=== PATIENT | female | born 1995 | race Caucasian/White ===

== ENCOUNTER 2022-01-27 11:24 | Inpatient (IN) | payer MEDICAID, SELFPAY ==
[2022-01-27 11:27] VITALS: BP 155/107; PULSE 100; RESP 20; TEMP 37.1; O2SAT 98; BMI 32.9
[2022-01-27 11:52] VITALS: BP 152/106; PULSE 83; RESP 16; TEMP 36.5; O2SAT 98
--- NOTE | 2022-01-27 11:52 | ED_ITS ---
HPI - General Adult General: Chief complaint: Psychiatric Symptoms Stated complaint: SI Time Seen by Provider: 01/27/22 11:30 History of Present Illness: HPI: 26yo patient w/ hx of depression, Steele syndrome, autistic spectrum disorder BIBA for statements of suicidal ideation. for On arrival, the patient is AAOx3 and cooperative with my evaluation. No focal complaints of chest pain, shortness of breath, palpitations, N/V, focal GI/ complaints. Currently denies YARY. No complaints of hallucinations. Onset: acute Duration: ongoing Location: home Severity: severe Associated symptoms: Deny chest pain, dyspnea, nausea, rash, palpitations or vo miting Review of Systems Const: Denies: fever(s) or chills Eyes: Denies: change in vision ENMT: Denies: mouth pain Card: Denies: chest pain or palpitations Resp: Denies: dyspnea or non-productive cough GI: Denies: abdominal pain, nausea, vomiting or diarrhea : Denies: dysuria Musc: Denies: extremity pain Skin/Breast: Denies: rash or new lesions Neuro: Denies: weakness in extremities Psych: Reports: suicidal ideation and other (Normal mood) Martin/Lymph: Denies: easy bruising PFSH ED PFSH: Medical History (Updated 01/27/22 @ 12:21 by Julianne Cade MD) Autistic spectrum disorder Depression Steele syndrome Social History (Updated 01/27/22 @ 11:54 by Julianne Cade MD) Smoking and tobacco status: never smoked Alcohol intake: never Physical Exam Const: COMMON NORMALS: alert HENMT: COMMON NORMALS: atraumatic HEAD & SCALP: atraumatic MOUTH: moist mucous membranes not abnormal Eye: COMMON NORMALS: EOMs intact bilaterally and conjunctivae normal CONJUNCTIVA: Yes conjunctivae normal Neck/C-Spine: COMMON NORMALS: full ROM and supple Resp: COMMON NORMALS: normal respiratory effort and clear to auscultation bilaterally AUSCULTATION: clear to auscultation bilaterally Cardio: COMMON NORMALS: regular rate RATE: regular rate GI: COMMON NORMALS: Soft to palpation and non-tender PALPATION: Yes Soft to palpation Extremity: COMMON NORMALS: full ROM Neuro: SENSORIUM/ORIENTATION: Yes alert MOTOR EXAM: No Abnormal motor strength present and Other motor observations present (no focal motor deficits) Psych: COMMON NORMALS: speech normal SPEECH: Yes normal speech MOOD & AFFECT: Yes euthymic mood Course Vital Signs: Vital signs: Vital Signs Temperature 99.2 F 01/27/22 14:00 Pulse Rate 84 01/27/22 14:00 Respiratory Rate 17 01/27/22 14:00 Blood Pressure 156/91 01/27/22 14:00 Pulse Oximetry 100 01/27/22 14:00 MDM - General Adult Medical Decision Making [26]yo patient w/ hx of depression, steele syndrome, autism spectrum disorder presenting for SI and depression. HDS, exam within normal limit Thoughts are linear and organized, and the patient has no AH/VH, or HI. Clinically the patient displays no overt toxidrome; they are well appearing, with low suspicion for toxic ingestion given history and exam. Symptoms unlikely 2/2 anemia, hypothyroidism, infection, or ICH. Workup: CBC, CMP, Lipase, salicylate/tylenol, UDS Lab findings: wnl, +benzos in the urine [1:15pm] On reassessment, labs and workup wnl. Patient is hemodynamically stable with no acute medical complaints. Case discussed with psychiatric provider Dr. Garsia at [facility] psych inpatient with recommendation for admission Disposition: Psych Lab Data : 01/27/22 11:45 01/27/22 11:45 Laboratory Results WBC 12.2 10^3/uL (4.0-10.0) H 01/27/22 11:45 RBC 4.58 10^6/uL (4.1-5.3) 01/27/22 11:45 Hgb 14.6 g/dL (11.5-15.3) 01/27/22 11:45 Hct 43.1 % (37.0-47.0) 01/27/22 11:45 MCV 94.1 fl (81-99) 01/27/22 11:45 MCH 31.9 pg (28.0-34.0) 01/27/22 11:45 MCHC 33.9 g/dL (30.0-36.0) 01/27/22 11:45 RDW 11.8 % (12.1-15.1) L 01/27/22 11:45 Plt Count 361 10^3/cmm (130-400) 01/27/22 11:45 MPV 10.5 fL (7.4-10.4) H 01/27/22 11:45 Neut % (Auto) 68.5 % 01/27/22 11:45 Lymph % (Auto) 24.9 % 01/27/22 11:45 [place] % (Auto) 5.4 % 01/27/22 11:45 Eos % (Auto) 0.3 % 01/27/22 11:45 Baso % (Auto) 0.2 % 01/27/22 11:45 Neut # (Auto) 8.33 10^3/uL (1.8-7.7) H 01/27/22 11:45 Lymph # (Auto) 3.0 10^3/uL (0.8-4.8) 01/27/22 11:45 [place] # (Auto) 0.7 10^3/uL (0.2-0.9) 01/27/22 11:45 Eos # (Auto) 0.0 10^3/uL (0.0-0.8) 01/27/22 11:45 Baso # (Auto) 0.0 10^3/uL (0.0-0.1) 01/27/22 11:45 Nucleated RBC % (auto) 0 % 01/27/22 11:45 Nucleated RBCs # 0.0 /100WBC 01/27/22 11:45 Sodium 137 mmol/L (136-145) 01/27/22 11:45 Potassium 4.0 mmol/L (3.5-5.1) 01/27/22 11:45 Chloride 99 mmol/L (98-107) 01/27/22 11:45 Carbon Dioxide 24 mmol/L (22-29) 01/27/22 11:45 Anion Gap 18.0 (5-19) 01/27/22 11:45 BUN 13 mg/dL (6-20) 01/27/22 11:45 Creatinine 0.8 mg/dL (0.5-0.9) 01/27/22 11:45 GFR Calculation 85.4 mL/min (90-130) L 01/27/22 11:45 Glucose 165 mg/dL (65-115) H 01/27/22 11:45 Calculated Osmolality 288 mOsm/kg (285-295) 01/27/22 11:45 Calcium 9.8 mg/dL (8.5-10.5) 01/27/22 11:45 Total Bilirubin 0.5 mg/dL (0.15-1.2) 01/27/22 11:45 AST 26 U/L (0-32) 01/27/22 11:45 ALT 27 U/L (0-33) 01/27/22 11:45 Alkaline Phosphatase 55 IU/L (35-105) 01/27/22 11:45 Total Protein 8.1 g/dL (6.6-8.7) 01/27/22 11:45 Albumin 4.9 g/dL (3.5-5.2) 01/27/22 11:45 Globulin 3.2 g/dL (1.3-4.6) 01/27/22 11:45 Lipase 26 U/L (13-60) 01/27/22 11:45 Salicylates < 0.3 mg/dL (3-10) L 01/27/22 11:45 Urine Opiates Screen Negative ng/mL (Negative) 01/27/22 11:56 Acetaminophen < 5.0 ug/mL (10-30) L 01/27/22 11:45 Ur Barbiturates Screen Negative ng/mL (Negative) 01/27/22 11:56 Ur Phencyclidine Scrn Negative ng/mL (Negative) 01/27/22 11:56 Ur Amphetamines Screen Negative ng/mL (Negative) 01/27/22 11:56 U Benzodiazepines Scrn Positive ng/mL (Negative) H 01/27/22 11:56 Urine Cocaine Screen Negative ng/mL (Negative) 01/27/22 11:56 U Marijuana (THC) Screen Negative ng/mL (Negative) 01/27/22 11:56 Discharge Plan Discharge Patient Disposition: Admitted As Inpatient Admit Provider: Jorden Garsia Clinical Impression: Depression, Depression with suicidal ideation Condition: Stable Coding Level of Care Code ED Director Of Sales Marketing for [employer] Fwd Exam Comprehensive
[2022-01-27 11:55] LABS: Basophils % 0.2 %; Eosinophils % 0.3 %; Hematocrit 43.1 % (37.0-47.0); Hemoglobin 14.6 g/dL (11.5-15.3); Lymphocytes % 24.9 %; Mean Corpuscular HGB Conc 33.9 g/dL (30.0-36.0); Mean Corpuscular Hemoglobin 31.9 pg (28.0-34.0); Mean Corpuscular Volume 94.1 fl (81-99); Mean Platelet Volume 10.5 fL (7.4-10.4); Monocytes # 0.7 10^3/uL (0.2-0.9); Monocytes % 5.4 %; Neutrophils # 8.33 10^3/uL (1.8-7.7); Neutrophils % 68.5 %; Nucleated Red Blood Cells % 0 %; Platelet Count 361 10^3/cmm (130-400); Red Blood Count 4.58 10^6/uL (4.1-5.3); Red Cell Distribution Width 11.8 % (12.1-15.1); White Blood Count 12.2 10^3/uL (4.0-10.0)
[2022-01-27 12:19] LABS: Amphetamines Screen Urine Negative (Negative); Barbiturates Screen Urine Negative (Negative); Benzodiazepines Screen Urine Positive (Negative); Cocaine Screen Urine Negative (Negative); Opiate Screen Urine Negative (Negative); PCP Screen Urine Negative (Negative); THC Screen Urine Negative (Negative)
[2022-01-27 12:22] LABS: Alanine Aminotransferase 27 U/L (0-33); Albumin Level 4.9 g/dL (3.5-5.2); Alkaline Phosphatase 55 IU/L (35-105); Aspartate Amino Transferase 26 U/L (0-32); Blood Urea Nitrogen 13 mg/dL (6-20); Calcium 9.8 mg/dL (8.5-10.5); Carbon Dioxide 24 mmol/L (22-29); Chloride 99 mmol/L (98-107); Globulin 3.2 g/dL (1.3-4.6); Glomerular Filtration Rate 85.4 mL/min (90-130); Glucose 165 mg/dL (65-115); Lipase 26 U/L (13-60); Osmolality Calculated 288 mOsm/kg (285-295); Sodium 137 mmol/L (136-145); Total Bilirubin 0.5 mg/dL (0.15-1.2); Total Protein 8.1 g/dL (6.6-8.7)
[2022-01-27 12:27] LABS: Acetaminophen < 5.0 ug/mL (10-30); Salicylate < 0.3 mg/dL (3-10)
[2022-01-27 12:34] VITALS: BP 189/81; PULSE 81; O2SAT 96
--- NOTE | 2022-01-27 13:01 | PC.NURSE ---
report to Sasha in NPU
[2022-01-27] MEDS: hyDROXYzine 25 mg Capsule 50 MG PO (13:59)
[2022-01-27 14:00] VITALS: BP 156/91; PULSE 84; RESP 17; TEMP 37.3; O2SAT 100
--- NOTE | 2022-01-27 14:06 | PC.NURSE ---
Administered vistaril 50mg for pt experiencing anxiety.
[2022-01-27] MEDS: OLANZapine 5 mg ODT PO (16:22)
[2022-01-27] MEDS: ondansetron 4 MG Tablet PO (16:22)
[2022-01-27 16:40] LABS: Glucose Point of Care 159 mg/dL (70-110)
[2022-01-27] MEDS: atorvastatin 40 mg Tablet PO (17:37)
[2022-01-27 20:46] VITALS: BP 150/84
[2022-01-27] MEDS: cloNIDine 0.1 mg Tablet PO (20:46)
[2022-01-27] MEDS: atenolol 50 mg Tablet 25 MG PO (20:47)
[2022-01-27] MEDS: BuSPIRONE 10 mg Tablet 7.5 MG PO (20:47)
[2022-01-27] MEDS: acetaminophen 325 mg Tablet 650 MG PO (20:47)
[2022-01-27 20:50] LABS: Glucose Point of Care 147 mg/dL (70-110)
[2022-01-27 22:00] VITALS: BP 150/84; PULSE 92; RESP 16; TEMP 36.7; O2SAT 99
[2022-01-28 05:26] VITALS: BP 127/83; PULSE 60; RESP 17; TEMP 36.7; O2SAT 100
[2022-01-28 06:30] LABS: Glucose Point of Care 137 mg/dL (70-110)
[2022-01-28] MEDS: montelukast sodium 10 mg Tablet PO (10:04)
[2022-01-28] MEDS: levothyroxine 100 mcg Tablet 200 MCG PO (10:04)
[2022-01-28] MEDS: lurasidone 80 mg Tablet PO (10:06)
[2022-01-28] MEDS: lisinopril 5 mg Tablet PO (10:06)
[2022-01-28] MEDS: pioglitazone 30 mg Tablet PO (10:06)
[2022-01-28] MEDS: lisinopril 10 mg Tablet PO (10:06)
[2022-01-28] MEDS: BuSPIRONE 10 mg Tablet 7.5 MG PO ×2 (10:07→20:40)
[2022-01-28] MEDS: atenolol 50 mg Tablet 25 MG PO ×2 (10:07→20:38)
[2022-01-28] MEDS: acetaminophen 325 mg Tablet 650 MG PO (10:08)
[2022-01-28] MEDS: hydroCHLOROthiazide 25 mg Tablet PO (10:08)
--- NOTE | 2022-01-28 10:40 | PC.NURSE ---
In day area conversing with peers. To room to complete assessment. Speech is very fast and pressured. Reports anxiety is improved but appears to be anxious. When asked, denies. Denies pain. Denies SI/HI and AVH at this time. Did report having dreams last night and felt as if someone was watching me and I felt uneasy. Does report she gets nervous when visiting mom but would not elaborate to why. Spoke in length about how she bright at home and like to watch old shows because they make her feel warm inside. Support voiced.
[2022-01-28 11:31] LABS: Glucose Point of Care 150 mg/dL (70-110)
--- NOTE | 2022-01-28 12:42 | P.NPUHP_ITS ---
Providers/Chief Complaint Admitting Physician: Jorden Garsia MD Chief Complaint: SI HPI NPU History of Present Illness Stacia Martines is a 26 year old female admitted through our emergency department with the following report: HPI: 26yo patient w/ hx of depression, Mosley syndrome, autistic spectrum disorder BIBA for statements of suicidal ideation. for On arrival, the patient is AAOx3 and cooperative with my evaluation. No focal complaints of chest pain, shortness of breath, palpitations, N/V, focal GI/ complaints. Currently denies YARY. No complaints of hallucinations. She was admitted to the neuropsychiatry unit for definitive treatment of these issues. She says that she has been more depressed lately. 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 Both she and her m other say that she has been on the Latuda for a long time and it really does not work very well for her. They say that she did better when she took risperidone. She evidently took a DNA test that said Latuda was supposed to be better for her. That is the reason that they changed. She would like to change back to the risperidone. She does not remember the dose but took it twice a day. She said they were white. She said that she did gain weight with it but then they told her to watch what she ate and she was able to lose the weight. She understands that she needs to be careful with that and is not concerned about that possibility. She said it did not make her tired during the day. She felt it helped her mood substantially. She is diagnosed with depression, Mosley syndrome and autistism spectrum disorder. She lives on her own and manages her own medication. I can see her refills of the Latuda in December but do not see her refill on the venlafaxine since August of last year. She is adamant that she has been consistent lately with them but might have missed some doses previo usly. Meds NPU Home Medications Medication Instructions Recorded Confirmed Last Taken Type ascorbic acid (vitamin C) 100 mg 100 mg PO .MON & FRI 01/27/22 01/27/22 01/26/22 History tablet (Vitamin C) atenolol 25 mg tablet 25 mg PO BID 01/27/22 01/27/22 01/26/22 History atorvastatin 40 mg tablet 40 mg PO QPM 01/27/22 01/27/2201/26/22 History buspirone 7.5 mg tablet 7.5 mg PO BID 01/27/22 01/27/22 01/26/22 History clonidine HCl 0.1 mg tablet 0.1 mg PO BEDTIME 01/27/22 01/27/22 01/26/22 History conjugated estrogens 0.3 mg tablet 0.3 mg PO DAILY 01/27/22 01/27/22 Unknown History (Premarin) dapagliflozin 5 mg tablet (Farxiga) 5 mg PO DAILY 01/27/22 01/27/22 01/26/22 History elderberry fruit 460 mg-elderberry 1 cap PO DAILY 01/27/22 01/27/22 01/26/22 History flower 115 mg capsule ergocalciferol (vitamin D2) 1,250 1,250 mcg PO .ON MON & FRI 01/27/22 01/27/22 01/26/22 History mcg (50,000 unit) capsule famotidine 20 mg tablet 20 mg PO BID PRN 01/27/22 01/27/22 01/26/22 History fenofibrate 160 mg tablet 160 mg PO DAILY 01/27/22 01/27/22 01/26/22 History hydrochlorothiazide 25 mg tablet 25 mg PO DAILY 01/27/22 01/27/22 01/26/22 History levothyroxine 200 mcg tablet 200 mcg PO DAILY 01/27/22 01/27/22 01/26/22 History lisinopril 10 mg tablet 10 mg PO DAILY 01/27/22 01/27/22 01/26/22 History lisinopril 5 mg tablet 5 mg PO DAILY 01/27/22 01/27/22 01/26/22 History lorazepam 0.5 mg tablet 0.5 mg PO TID PRN 01/27/22 01/27/22 01/26/22 History lurasidone 80 mg tablet (Latuda) 80 mg PO DAILY 01/27/22 01/27/22 01/26/22 History montelukast 10 mg tablet 10 mg PO DAILY 01/27/22 01/27/22 01/26/22 History pioglitazone 30 mg tablet 30 mg PO DAILY 01/27/22 01/27/22 01/26/22 History Allergies Allergy/AdvReac Type Severity Reaction Status Date / Time cefaclor [From [facility], [facility]] Allergy ALGY-Hives Verified 01/27/22 12:52 PFSH NPU PFS: Medical History (Updated 01/28/22 @ 13:01 by Jorden Garsia MD) Autistic spectrum disorder Depression Mosley syndrome Social History (Updated 01/27/22 @ 11:54 by Julianne Cade MD) Smoking and tobacco status: never smoked Alcohol intake: never Mental Status Exam MSE Comments: This is a 26-year-old obese female who appears approximately her stated age and is in no acute distress. She is dressed in hospital scrubs and only fairly groomed. She was pleasant and cooperative with the evaluation. psychomotor activity is mildly decreased Speech is at a regular rate and rhythm, normal volume, good articulation, not pressured. Alert, oriented X3 Attention and concentration appears to be normal. Memory is intact Mood is depressed. Affect is moderately dysphoric. Thought process is logical and goal-directed. Thought content: Denies auditory and visual hallucinations. No delusions or pa ranoia are noted. She has had some suicidal ideation recently but no plans in the hospital. She contracts for safety. She denies homicidal ideation. Fund of knowledge is appears to be a little lower than average Insight and judgment appear to be fairly good. Impulse control is fairly good. Vitals/I&O/Wt Last Vital Signs Temp 98.0 F 01/28/22 05:26 Pulse 60 01/28/22 05:26 Resp 17 01/28/22 05:26 BP 127/83 01/28/22 05:26 Pulse Ox 100 01/28/22 05:26 Weight last 48 hrs Weight 81.647 kg Data NPU : 01/27/22 11:45 01/27/22 11:45 A&P Assessment and plan (1) Autistic spectrum disorder: Status: Acute (2) Mosley syndrome: Status: Acute (3) Depression with suicidal ideation: Status: Acute Plan This is a 26-year-old female with Mosley's syndrome and autism spectrum disorder with a long history of mood instability. She and her mother states she has not done well with Latuda and wanted to change back to the risperidone. Plan: 1. Continue current medication. We will gradually taper the Latuda and start risperidone at 1 mg twice daily and increase as tolerated and to affect. Continue Effexor 300 mg daily. 2. Continue every 15 minute checks for safety. 3. Encourage individual, group and milieu therapies. 4. Encourage sober living treatment after discharge at the highest level of care to which she is willing to commit. 5. We will monitor for safety for herself in the community prior to discharge. Involuntary Hold Information 96 Hour Hold: 96 Hour Involuntary Admission: No Attestations NPU Medical Necessity Statement*: Inpatient hospitalization is medically necessary and the clinically appropriate intervention at this time. We will initiate medications and make changes as indicated. She will be in the hospital for over 2 midnights. Likely length of stay 4-6 days Coding Level of Care Code Acute Tank Stave Assembler for [facility] Fwd Diagnoses Autistic spectrum disorder F84.0 Mosley syndrome Q96.9 Depression with suicidal ideation F32.A; R45.851
[2022-01-28 14:00] VITALS: BP 112/66; PULSE 67; RESP 17; TEMP 36.7; O2SAT 99
--- NOTE | 2022-01-28 14:47 | PC.SOCIAL ---
Patient attended and participated in group.
[2022-01-28 16:40] LABS: Glucose Point of Care 135 mg/dL (70-110)
[2022-01-28] MEDS: atorvastatin 40 mg Tablet PO (17:23)
[2022-01-28] MEDS: risperiDONE 1 mg Tablet PO (17:23)
[2022-01-28 19:58] VITALS: BP 123/76; PULSE 72; RESP 18; TEMP 36.8; O2SAT 99
[2022-01-28] MEDS: venlafaxine ER (24HR) 150 mg Capsule 300 MG PO (20:35)
[2022-01-28] MEDS: cloNIDine 0.1 mg Tablet PO (20:38)
[2022-01-28 22:01] LABS: Glucose Point of Care 145 mg/dL (70-110)
--- NOTE | 2022-01-28 22:26 | PC.NURSE ---
CBG was 145.
[2022-01-29 06:00] VITALS: BP 97/67; PULSE 67; RESP 18; TEMP 36.7; O2SAT 98
[2022-01-29 06:38] LABS: Glucose Point of Care 138 mg/dL (70-110)
[2022-01-29] MEDS: atenolol 50 mg Tablet 25 MG PO ×2 (08:37→20:51)
[2022-01-29] MEDS: BuSPIRONE 10 mg Tablet 7.5 MG PO ×2 (08:37→20:51)
[2022-01-29] MEDS: levothyroxine 100 mcg Tablet 200 MCG PO (08:37)
[2022-01-29] MEDS: lisinopril 10 mg Tablet PO (08:37)
[2022-01-29] MEDS: montelukast sodium 10 mg Tablet PO (08:37)
[2022-01-29] MEDS: lisinopril 5 mg Tablet PO (08:37)
[2022-01-29] MEDS: hydroCHLOROthiazide 25 mg Tablet PO (08:37)
[2022-01-29] MEDS: risperiDONE 1 mg Tablet PO ×2 (08:37→18:13)
[2022-01-29] MEDS: lurasidone 80 mg Tablet 40 MG PO (08:38)
[2022-01-29] MEDS: pioglitazone 30 mg Tablet PO (08:38)
[2022-01-29 11:41] LABS: Glucose Point of Care 155 mg/dL (70-110)
[2022-01-29 14:00] VITALS: BP 93/66; PULSE 74; RESP 16; TEMP 36.7; O2SAT 98
[2022-01-29 17:25] LABS: Glucose Point of Care 181 mg/dL (70-110)
[2022-01-29] MEDS: atorvastatin 40 mg Tablet PO (18:13)
--- NOTE | 2022-01-29 19:19 | W.PM.NPUPNS ---
Subjective NPU Subjective: Patient presents today reporting that she is feeling considerably better with the decrease in the Latuda and the initiation of Risperdal. She reports that she is been on it in the past and the Risperdal was helpful but she was switched to Latuda about 1 year ago. She reports that the thoughts she was having that were problematic are really started late and she is eating and sleeping better. We discussed seeing how she feels in the morning and then talking to her guardian/family about the possibility of discharge in the next 48-72 hours. Mental Status Exam MSE Comments: This is an obese white female in hospital scrubs with adequate grooming and eye contact. No abnormal movements except for mild psychomotor retardation. Cooperative with exam in no acute distress. Speech was normal rate and volume with limited prosody. Mood described as better, affect slightly subdued. Thought process organized. Thought contact: patient denies suicidal or homicidal ideation, there were no delusions reported or noted, patient denied auditory or visual hallucinations. Attention and concentration appeared intact and memory appeared reliable but none were formally tested. Patient is alert and oriented times three. Insight and judgment appear fair and impulse control appears limited. Vitals/I&O/Wt Last Vital Signs Temp 98.1 F 01/29/22 21:15 Pulse 78 01/29/22 21:15 Resp 18 01/29/22 21:15 BP 113/75 01/29/22 21:15 Pulse Ox 99 01/29/22 21:15 Data NPU : 01/27/22 11:45 01/27/22 11:45 A&P Assessment and plan (1) Autistic spectrum disorder: Status: Acute (2) Mosley syndrome: Status: Acute (3) Depression with suicidal ideation: Status: Acute (4) Depression: Status: Acute Plan This is a 26-year-old female with Mosley's syndrome and autism spectrum disorder with a long history of mood instability.? She and her mother states she has not done well with Latuda and wanted to change back to the risperidone. ?Plan: 1.? Continue current medication.? We will gradually taper the Latuda and started risperidone at 1 mg twice daily and increase as tolerated and to affect.? Continue Effexor 300 mg daily. 2.? Continue every 15 minute checks for safety. 3.? Encourage individual, group and milieu therapies. 4.? Encourage sober living treatment after discharge at the highest level of care to which she is willing to commit. 5.? We will work with guardian over discharge plan. Involuntary Hold Information 96 Hour Hold: 96 Hour Involuntary Admission: No Attestations NPU Medical Necessity Statement*: Inpatient hospitalization is medically necessary and the clinically appropriate intervention at this time.? We will initiate medications and make changes as indicated.? Likely length of stay 2-4 days Coding Level of Care Code Acute Associate Software Developer for [facility] Fwd Diagnoses Autistic spectrum disorder F84.0 Mosley syndrome Q96.9 Depression with suicidal ideation F32.A; R45.851 Depression F32.A
[2022-01-29 20:50] VITALS: BP 113/75
[2022-01-29] MEDS: venlafaxine ER (24HR) 150 mg Capsule 300 MG PO (20:50)
[2022-01-29] MEDS: cloNIDine 0.1 mg Tablet PO (20:50)
[2022-01-29 21:15] VITALS: BP 113/75; PULSE 78; RESP 18; TEMP 36.7; O2SAT 99
[2022-01-30 06:00] VITALS: BP 103/68; PULSE 75; RESP 16; TEMP 36.7; O2SAT 99
[2022-01-30 06:47] LABS: Glucose Point of Care 146 mg/dL (70-110)
--- NOTE | 2022-01-30 06:52 | PC.NURSE ---
CBG was 146
[2022-01-30] MEDS: BuSPIRONE 10 mg Tablet 7.5 MG PO ×2 (09:32→20:07)
[2022-01-30] MEDS: levothyroxine 100 mcg Tablet 200 MCG PO (09:32)
[2022-01-30] MEDS: lurasidone 80 mg Tablet 40 MG PO (09:33)
[2022-01-30] MEDS: montelukast sodium 10 mg Tablet PO (09:33)
[2022-01-30] MEDS: risperiDONE 1 mg Tablet PO ×2 (09:33→17:20)
[2022-01-30] MEDS: pioglitazone 30 mg Tablet PO (09:33)
[2022-01-30 12:52] LABS: Glucose Point of Care 176 mg/dL (70-110)
[2022-01-30 14:00] VITALS: BP 119/73; PULSE 75; RESP 16; TEMP 36.7; O2SAT 100
[2022-01-30 16:32] LABS: Glucose Point of Care 122 mg/dL (70-110)
--- NOTE | 2022-01-30 16:49 | W.PM.NPUPNS ---
Subjective NPU Subjective: Patient presents today reporting that she is continuing to feel ongoing improvement with the resumption of her Risperdal. She denies having any significant negative thoughts and is feeling more more optimistic that she will be able to return home safely. Treatment team spoke to mother who was becoming more optimistic about the idea of her coming home. We discussed the likelihood of discharge in the next 48 hours. Mental Status Exam MSE Comments: This is an obese white female in hospital scrubs with adequate grooming and eye contact. No abnormal movements except for mild psychomotor retardation. Cooperative with exam in no acute distress. Speech was normal rate and volume with limited prosody.? Mood described as still doing better, affect slightly subdued. Thought process organized. Thought contact: patient denies suicidal or homicidal ideation, there were no delusions reported or noted, patient denied auditory or visual hallucinations. Attention and concentration appeared intact and memory appeared reliable but none were formally tested. Patient is alert and oriented times three. Insight and judgment appear fair and impulse control appears limited. Vitals/I&O/Wt Last Vital Signs Temp 98.1 F 01/30/22 14:00 Pulse 75 01/30/22 14:00 Resp 16 01/30/22 14:00 BP 119/73 01/30/22 14:00 Pulse Ox 100 01/30/22 14:00 Data NPU : 01/27/22 11:45 01/27/22 11:45 A&P Assessment and plan (1) Autistic spectrum disorder: Status: Acute (2) Mosley syndrome: Status: Acute (3) Depression: Status: Acute (4) Depression with suicidal ideation: Status: Acute Plan This is a 26-year-old female with Mosley's syndrome and autism spectrum disorder with a long history of mood instability.? She and her mother states she has not done well with Latuda and wanted to change back to the risperidone. ?Plan: 1.? Continue current medication.? We will gradually taper the Latuda and started risperidone at 1 mg twice daily and increase as tolerated and to affect.? Continue Effexor 300 mg daily. 2.? Continue every 15 minute checks for safety. 3.? Encourage individual, group and milieu therapies. 4.? Encourage sober living treatment after discharge at the highest level of care to which she is willing to commit. 5.? Plan for discharge in the next 48 hours. Involuntary Hold Information 96 Hour Hold: 96 Hour Involuntary Admission: No Attestations NPU Medical Necessity Statement*: Inpatient hospitalization is medically necessary and the clinically appropriate intervention at this time.? We will initiate medications and make changes as indicated.?? Likely length of stay 1-3 days Coding Level of Care Code Acute Therapeutic Activities Services Worker for g Fwd Diagnoses Autistic spectrum disorder F84.0 Mosley syndrome Q96.9 Depression F32.A Depression with suicidal ideation F32.A; R45.851
[2022-01-30] MEDS: atorvastatin 40 mg Tablet PO (17:20)
[2022-01-30 20:07] VITALS: BP 112/80
[2022-01-30] MEDS: venlafaxine ER (24HR) 150 mg Capsule 300 MG PO (20:07)
[2022-01-30] MEDS: cloNIDine 0.1 mg Tablet PO (20:07)
[2022-01-30] MEDS: atenolol 50 mg Tablet 25 MG PO (20:07)
[2022-01-30 20:48] VITALS: BP 112/80; PULSE 85; RESP 16; O2SAT 100
--- NOTE | 2022-01-30 20:55 | PC.NURSE ---
CBG 149 at 2055
[2022-01-30 20:58] LABS: Glucose Point of Care 149 mg/dL (70-110)
[2022-01-31 05:42] VITALS: BP 105/71; PULSE 79; RESP 16; O2SAT 100
[2022-01-31 07:01] LABS: Glucose Point of Care 134 mg/dL (70-110)
[2022-01-31] MEDS: BuSPIRONE 10 mg Tablet 7.5 MG PO (08:43)
[2022-01-31] MEDS: levothyroxine 100 mcg Tablet 200 MCG PO (08:44)
[2022-01-31] MEDS: lisinopril 10 mg Tablet PO (08:44)
[2022-01-31] MEDS: montelukast sodium 10 mg Tablet PO (08:44)
[2022-01-31] MEDS: lurasidone 80 mg Tablet 40 MG PO (08:44)
[2022-01-31] MEDS: lisinopril 5 mg Tablet PO (08:44)
[2022-01-31] MEDS: pioglitazone 30 mg Tablet PO (08:45)
[2022-01-31] MEDS: hydroCHLOROthiazide 25 mg Tablet PO (08:45)
[2022-01-31] MEDS: atenolol 50 mg Tablet 25 MG PO (08:47)
[2022-01-31 11:11] LABS: Glucose Point of Care 97 mg/dL (70-110)
--- NOTE | 2022-01-31 11:31 | W.PM.NPUDCS ---
Diagnoses at Discharge Discharge Diagnosis (1) Autistic spectrum disorder: Status: Acute (2) Mosley syndrome: Status: Acute (3) Depression: Status: Acute (4) Depression with suicidal ideation: Status: Resolved Reason for Visit Reason for Visit: SI Brief History: History of Present Illness Stacia Martines is a 26 year old female admitted through our emergency department with the following report: HPI: 26yo patient w/ hx of depression, Mosley syndrome, autistic spectrum disorder BIBA for statements of suicidal ideation. for On arrival, the patient is AAOx3 and cooperative with my evaluation. No focal complaints of chest pain, shortness of breath, palpitations, N/V, focal GI/ complaints. Currently denies YARY. No complaints of hallucinations. She was admitted to the neuropsychiatry unit for definitive treatment of these issues.? She says that she has been more depressed lately.? 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 Both she and her mother say that she has been on the Latuda for a long time and it really does not work very well for her.? They say that she did better when she took risperidone.? She evidently took a DNA test that said Latuda was supposed to be better for her.? That is the reason that they changed.? She would like to change back to the risperidone.? She does not remember the dose but took it twice a day.? She said they were white.? She said that she did gain weight with it but then they told her to watch what she ate and she was able to lose the weight.? She understands that she needs to be careful with that and is not concerned about that possibility.? She said it did not make her tired during the day.? She felt it helped her mood substantially.? She is diagnosed with depression, Mosley syndrome and autistism spectrum disorder.? She lives on her own and manages her own medication.? I can see her refills of the Latuda in December but do not see her refill on the venlafaxine since August of last year.? She is adamant that she has been consistent lately with them but might have missed some doses previously. Hospital Course Hospital Course She quickly acclimated to the unit, group and milieu therapies provided. Her Latuda was officially discontinued and she was initiated on all and Effexor and she had marked improvement and a resolution of her suicidality. She is able to contract for safety outside the hospital prior to discharge. During the hospitalization, patient had routine laboratory studies which were within normal limits except for few outliers. Additionally there was a general medical evaluation which was also within normal limits and revealed no new acute processes. Discharge Summary: At the time of discharge, she denied psychosis or lethality. Mood and anxiety were well managed. Patient endorsed a plan to follow-up with the aftercare recommendations of the treatment team. Patient was evaluated and deemed to be absent credible lethality, and had achieved the maximum benefit from an inpatient hospitalization, so was discharged. Involuntary Hold Information 96 Hour Hold: 96 Hour Involuntary Admission: No Mental Status Exam MSE Comments: This is an obese white female in hospital scrubs with adequate grooming and eye contact. No abnormal movements except for mild psychomotor retardation. Cooperative with exam in no acute distress. Speech was normal rate and volume with limited prosody.? Mood described as pretty good, affect slightly subdued. Thought process organized. Thought contact: patient denies suicidal or homicidal ideation, there were no delusions reported or noted, patient denied auditory or visual hallucinations. Attention and concentration appeared intact and memory appeared reliable but none were formally tested. Patient is alert and oriented times three. Insight and judgment appear fair and impulse control appears limited. Discharge Data Studies Completed and Pending: Laboratory Results WBC 12.2 10^3/uL (4.0 -10.0) H 01/27/22 11:45 RBC 4.58 10^6/uL (4.1 -5.3) 01/27/22 11:45 Hgb 14.6 g/dL (11.5-1 5.3) 01/27/22 11:45 Hct 43.1 % (37.0-47.0 ) 01/27/22 11:45 MCV 94.1 fl (81-99) 01/27/22 11:45 MCH 31.9 pg (28.0-34. 0) 01/27/22 11:45 MCHC 33.9 g/dL (30.0-3 6.0) 01/27/22 11:45 RDW 11.8 % (12.1-15.1 ) L 01/27/22 11:45 Plt Count 361 10^3/cmm (130 -400) 01/27/22 11:45 MPV 10.5 fL (7.4-10.4 ) H 01/27/22 11:45 Neut % (Auto) 68.5 % 01/27/22 11:45 Lymph % (Auto) 24.9 % 01/27/22 11:45 [place] % (Auto) 5.4 % 01/27/22 11:45 Eos % (Auto) 0.3 % 01/27/22 11:45 Baso % (Auto) 0.2 % 01/27/22 11:45 Neut # (Auto) 8.33 10^3/uL (1.8 -7.7) H 01/27/22 11:45 Lymph # (Auto) 3.0 10^3/uL (0.8- 4.8) 01/27/22 11:45 [place] # (Auto) 0.7 10^3/uL (0.2- 0.9) 01/27/22 11:45 Eos # (Auto) 0.0 10^3/uL (0.0- 0.8) 01/27/22 11:45 Baso # (Auto) 0.0 10^3/uL (0.0- 0.1) 01/27/22 11:45 Nucleated RBC % (a uto) 0 % 01/27/22 11:45 Nucleated RBCs # 0.0 /100WBC 01/27/22 11:45 Sodium 137 mmol/L (136-1 45) 01/27/22 11:45 Potassium 4.0 mmol/L (3.5-5 .1) 01/27/22 11:45 Chloride 99 mmol/L (98-107 ) 01/27/22 11:45 Carbon Dioxide 24 mmol/L (22-29) 01/27/22 11:45 Anion Gap 18.0 (5-19) 01/27/22 11:45 BUN 13 mg/dL (6-20) 01/27/22 11:45 Creatinine 0.8 mg/dL (0.5-0. 9) 01/27/22 11:45 GFR Calculation 85.4 mL/min (90-1 30) L 01/27/22 11:45 Glucose 165 mg/dL (65-115 ) H 01/27/22 11:45 POC Glucose 97 mg/dL (70-110) 01/31/22 11:07 Calculated Osmolal ity 288 mOsm/kg (285- 295) 01/27/22 11:45 Calcium 9.8 mg/dL (8.5-10 .5) 01/27/22 11:45 Total Bilirubin 0.5 mg/dL (0.15-1 .2) 01/27/22 11:45 AST 26 U/L (0-32) 01/27/22 11:45 ALT 27 U/L (0-33) 01/27/22 11:45 Alkaline Phosphata se 55 IU/L (35-105) 01/27/22 11:45 Total Protein 8.1 g/dL (6.6-8.7 ) 01/27/22 11:45 Albumin 4.9 g/dL (3.5-5.2 ) 01/27/22 11:45 Globulin 3.2 g/dL (1.3-4.6 ) 01/27/22 11:45 Lipase 26 U/L (13-60) 01/27/22 11:45 Salicylates < 0.3 mg/dL (3-10 ) L 01/27/22 11:45 Urine Opiates Scre en Negative ng/mL (N egative) 01/27/22 11:56 Acetaminophen < 5.0 ug/mL (10-3 0) L 01/27/22 11:45 Ur Barbiturates Sc reen Negative ng/mL (N egative) 01/27/22 11:56 Ur Phencyclidine S crn Negative ng/mL (N egative) 01/27/22 11:56 Ur Amphetamines Sc reen Negative ng/mL (N egative) 01/27/22 11:56 U Benzodiazepines Scrn Positive ng/mL (N egative) H 01/27/22 11:56 Urine Cocaine Scre en Negative ng/mL (N egative) 01/27/22 11:56 U Marijuana (THC) Screen Negative ng/mL (N egative) 01/27/22 11:56 Vitals: Last Vital Signs Temp 98.1 F 01/30/22 14:00 Pulse 79 01/31/22 05:42 Resp 16 01/31/22 05:42 BP 105/71 01/31/22 05:42 Pulse Ox 100 01/31/22 05:42 Discharge Plan Discharge Patient Disposition: Home Condition: Stable Prescriptions: New venlafaxine 150 mg Capsule,Extended Release 24hr 300 mg PO BEDTIME 30 Days Qty: 60 1RF risperidone 1 mg Tablet 1 mg PO BID 30 Days Qty: 60 1RF Continued atorvastatin 40 mg tablet 40 mg PO QPM 0RF clonidine HCl 0.1 mg tablet 0.1 mg PO BEDTIME 0RF atenolol 25 mg tablet 25 mg PO BID 0RF famotidine 20 mg tablet 20 mg PO BID PRN (Reason: Heartburn) 0RF lorazepam 0.5 mg tablet 0.5 mg PO TID PRN (Reason: Anxiety) 0RF lisinopril 10 mg tablet 10 mg PO DAILY 0RF Rx Instructions: TAKE WITH ONE 5MG TAB TO EQUAL 15MG buspirone 7.5 mg tablet 7.5 mg PO BID 0RF montelukast 10 mg tablet 10 mg PO DAILY 0RF levothyroxine 200 mcg tablet 200 mcg PO DAILY 0RF lisinopril 5 mg tablet 5 mg PO DAILY 0RF Rx Instructions: TAKE WITH ONE 10MG TAB TO EQUAL 15MG hydrochlorothiazide 25 mg tablet 25 mg PO DAILY 0RF ergocalciferol (vitamin D2) 1,250 mcg (50,000 unit) capsule 1,250 mcg PO .ON MON & FRI 0RF pioglitazone 30 mg tablet 30 mg PO DAILY 0RF Premarin 0.3 mg tablet 0.3 mg PO DAILY 0RF fenofibrate 160 mg tablet 160 mg PO DAILY 0RF Farxiga 5 mg tablet 5 mg PO DAILY 0RF Vitamin C 100 mg Tablet 100 mg PO .MON & FRI 0RF elderberry fruit and flower 460-115 mg Capsule 1 cap PO DAILY 0RF Discontinued Latuda 80 mg tablet 80 mg PO DAILY 0RF Rx Instructions: WITH SUPPER Discharge Orders: Discharge Order (Routine); Ordered 01/31/22 Ordered By: Roc Salgado Referrals: [facility] [Other] (Continue with director new product) [facility] Psychiatry-Dr. Elliot Velez [Other] - 02/10/22 8:30 am (Office visit) [facility] Hussain Aquino [Other] - 02/03/22 11:00 am (Follow up. ) [facility] David Bee [Other] - 02/02/22 11:00 am Discharge Diet: Regular Discharge Activity: Resume usual activity Patient Instructions: Depression (ED), Suicide Prevention (ED), Opioid Safety Discharge Attestations NPU Time Spent in Discharge Care*: less than 30 min Specific Discharge Activities: Specific discharge activities: educating patient, discussing with shelter case manager/social workers/dc planners, documenting/other paperwork and evaluating patient/reviewing data Coding Level of Care Code Acute Chg FW DC note Diagnoses Autistic spectrum disorder F84.0 Mosley syndrome Q96.9 Depression F32.A Depression with suicidal ideation F32.A; R45.851
[2022-01-31 11:51] VITALS: BP 105/71; PULSE 79; RESP 16; O2SAT 100
== END 2022-01-31 12:55 | disposition home or self-care (01) | DRG 881 ==
LOC: ER 12:21 → NP 12:50
PROVIDERS: Admitting Provider Psychiatry & Neurology Psychiatry; Emergency Provider Emergency Medicine; Family Provider Counselor Professional; Visit Provider Psychiatry & Neurology Psychiatry
DX: F32.A Depression, unspecified (principal); F84.0 Autistic disorder; R45.851 Suicidal ideations; Q96.9 Turner's syndrome, unspecified; Z79.890 Hormone replacement therapy
CPT/HCPCS: 36416; 80053; 80306; 80307; 82962; 83690; 85025; 97150; 97165; 99285; Q0162

== ENCOUNTER 2023-09-13 14:54 | Emergency (ER) | payer MEDICAID, SELFPAY ==
[2023-09-13 14:55] VITALS: BP 142/101; PULSE 86; RESP 18; TEMP 36.7; O2SAT 100; BMI 30.4
[2023-09-13 15:39] VITALS: BP 142/101; PULSE 86; RESP 18; O2SAT 100
[2023-09-13 15:42] LABS: Basophils % 0.3 %; Eosinophils # 0.1 10^3/uL (0.0-0.8); Eosinophils % 0.9 %; Hematocrit 41.3 % (36-47); Lymphocytes # 2.4 10^3/uL (0.8-4.8); Lymphocytes % 21.9 %; Mean Corpuscular HGB Conc 32.7 g/dL (30-55); Mean Corpuscular Hemoglobin 29.8 pg (27-33); Mean Corpuscular Volume 91.2 fl (85-98); Mean Platelet Volume 10.4 fL (7.4-10.4); Monocytes # 0.8 10^3/uL (0.2-0.9); Monocytes % 6.8 %; Neutrophils # 7.77 10^3/uL (1.8-7.7); Neutrophils % 69.6 %; Nucleated Red Blood Cells % 0 %; Platelet Count 383 10^3/cmm (157-399); Red Blood Count 4.53 10^6/uL (3.85-5.65); Red Cell Distribution Width 13.2 % (12.1-15.1); White Blood Count 11.16 10^3/uL (3.29-11.43)
[2023-09-13 16:03] LABS: Alanine Aminotransferase 20 U/L (0-33); Albumin Level 4.2 g/dL (3.5-5.2); Alkaline Phosphatase 78 U/L (35-105); Anion Gap 18.7 (5-19); Aspartate Amino Transferase 17 U/L (0-32); Blood Urea Nitrogen 9 mg/dL (6-20); Calcium 9.7 mg/dL (8.5-10.5); Carbon Dioxide 22 mmol/L (22-29); Chloride 104 mmol/L (98-107); Globulin 2.8 g/dL (1.3-4.6); Glomerular Filtration Rate 117.4 mL/min (90-130); Glucose 140 mg/dL (65-115); Osmolality Calculated 293 mOsm/kg (285-295); Potassium 3.7 mmol/L (3.5-5.1); Sodium 141 mmol/L (136-145); Total Bilirubin 0.3 mg/dL (0.15-1.2)
[2023-09-13 16:06] LABS: Acetaminophen < 5.0 ug/mL (10-30); Alcohol Level < 10 mg/dL (0-10); Salicylate < 0.3 mg/dL (3-10)
--- NOTE | 2023-09-13 16:08 | W.ED.PSYCHS ---
HPI - Psych General: Chief Complaint: Psychiatric Symptoms Stated Complaint: psych eval Time Seen by Provider: 09/13/23 14:56 Source: patient and EMS Mode of arrival: EMS Limitations: no limitations History of Present Illness: 28-year-old female has a history of autism she lives in a [facility] she is seen by PCP they state that she has been having increasing feelings of stress and has been forgetting to take her meds family wanted her to have a psych evaluation patient adamantly denies any SI or HI she has not made any statements. She is answering my questions here appropriately Associated symptoms: Deny depression Review of Systems Const: Denies: fever(s), chills, body aches or change in appetite Eyes: Denies: blurry vision or eye discomfort ENMT: Denies: throat pain or dental pain Card: Denies: chest pain Resp: Denies: dyspnea GI: Denies: abdominal pain, nausea, vomiting or diarrhea : Denies: dysuria Musc: Denies: neck pain or back pain Skin/Breast: Denies: rash Neuro: Denies: headache(s) Psych: Denies: depression Martin/Lymph: Denies: easy bruising All/Imm: Denies: urticaria PFSH ED PFSH: Medical History Autistic spectrum disorder Mosley syndrome Depression Social History Smoking and tobacco/nicotine status: never used tobacco/nicotine Alcohol intake: never Substance/Drug Use: never Physical Exam Const: COMMON NORMALS: no acute distress, patient oriented x3 and healthy appearing HENMT: COMMON NORMALS: normocephalic and atraumatic HEAD & SCALP: normocephalic and atraumatic Eye: COMMON NORMALS: Equal, round and reactive pupils present and EOMs intact bilaterally PUPIL: Yes Equal, round and reactive pupils present Neck/C-Spine: COMMON NORMALS: full ROM and supple Chest: COMMONS NORMALS: normal inspection of the chest and normal palpation of entire chest wall Resp: COMMON NORMALS: normal respiratory effort, No retractions, No use of accessory muscles and clear to auscultation bilaterally AUSCULTATION: clear to auscultation bilaterally Cardio: COMMON NORMALS: regular rate, regular rhythm and No murmurs present (Cardio) RATE: regular rate RHYTHM: regular rhythm GI: COMMON NORMALS: Normal to inspection, nondistended, normoactive bowel sounds present, Soft to palpation, non-tender and no masses PALPATION: Yes Soft to palpation Extremity: COMMON NORMALS: normal to inspection and full ROM Neuro: COMMON NORMALS: patient oriented x3, moves all extremities and no focal motor deficits Psych: COMMON NORMALS: mental status grossly normal, Normal thought process present and cooperative THOUGHT PROCESS: Normal thought process present Skin: COMMON NORMALS: no rashes or lesions noted and no wounds GENERAL SKIN EXAM: no rashes or lesions noted Course Vital Signs: Vital signs: Vital Signs Temperature 98.1 F 09/13/23 14:55 Pulse Rate 86 09/13/23 15:39 Respiratory Rate 18 09/13/23 15:39 Blood Pressure 142/101 09/13/23 15:39 Pulse Oximetry 100 09/13/23 15:39 Oxygen Delivery Me thod Room Air 09/13/23 15:39 MDM - Psych Medical Decision Making Patient presents with concerns of not taking her meds appropriately with a history of depression she is well-appearing here she has no suicidal thoughts no homicidal thoughts she is answer my questions appropriately does not appear acutely psychotic she is stable for discharge back to [facility] Medical Records I reviewed the patient's medical records. Lab Data I reviewed the patient's lab results. 09/13/23 15:26 09/13/23 15:26 Laboratory Results WBC 11.16 10^3/uL (3.29-11.43) 09/13/23 15:26 RBC 4.53 10^6/uL (3.85-5.65) 09/13/23 15:26 Hgb 13.50 g/dL (11.27-16.99) 09/13/23 15:26 Hct 41.3 % (36-47) 09/13/23 15:26 MCV 91.2 fl (85-98) 09/13/23 15:26 MCH 29.8 pg (27-33) 09/13/23 15:26 MCHC 32.7 g/dL (30-55) 09/13/23 15:26 RDW 13.2 % (12.1-15.1) 09/13/23 15:26 Plt Count 383 10^3/cmm (157-399) 09/13/23 15:26 MPV 10.4 fL (7.4-10.4) 09/13/23 15:26 Neut % (Auto) 69.6 % 09/13/23 15:26 Lymph % (Auto) 21.9 % 09/13/23 15:26 [place] % (Auto) 6.8 % 09/13/23 15:26 Eos % (Auto) 0.9 % 09/13/23 15:26 Baso % (Auto) 0.3 % 09/13/23 15:26 Neut # (Auto) 7.77 10^3/uL (1.8-7.7) H 09/13/23 15:26 Lymph # (Auto) 2.4 10^3/uL (0.8-4.8) 09/13/23 15:26 [place] # (Auto) 0.8 10^3/uL (0.2-0.9) 09/13/23 15:26 Eos # (Auto) 0.1 10^3/uL (0.0-0.8) 09/13/23 15:26 Baso # (Auto) 0.0 10^3/uL (0.0-0.1) 09/13/23 15:26 Nucleated RBC % (auto) 0 % 09/13/23 15: Nucleated RBCs # 0.0 /100WBC 09/13/23 15:26 Sodium 141 mmol/L (136-145) 09/13/23 15:26 Potassium 3.7 mmol/L (3.5-5.1) 09/13/23 15:26 Chloride 104 mmol/L (98-107) 09/13/23 15:26 Carbon Dioxide 22 mmol/L (22-29) 09/13/23 15:26 Anion Gap 18.7 (5-19) 09/13/23 15:26 BUN 9 mg/dL (6-20) 09/13/23 15:26 Creatinine 0.6 mg/dL (0.5-0.9) 09/13/23 15:26 GFR Calculation 117.4 mL/min (90-130) 09/13/23 15:26 Glucose 140 mg/dL (65-115) H 09/13/23 15:26 Calculated Osmolality 293 mOsm/kg (285-295) 09/13/23 15:26 Calcium 9.7 mg/dL (8.5-10.5) 09/13/23 15:26 Total Bilirubin 0.3 mg/dL (0.15-1.2) 09/13/23 15:26 AST 17 U/L (0-32) 09/13/23 15:26 ALT 20 U/L (0-33) 09/13/23 15:26 Alkaline Phosphatase 78 U/L (35-105) 09/13/23 15:26 Total Protein 7.0 g/dL (6.6-8.7) 09/13/23 15:26 Albumin 4.2 g/dL (3.5-5.2) 09/13/23 15:26 Globulin 2.8 g/dL (1.3-4.6) 09/13/23 15:26 Salicylates < 0.3 mg/dL (3-10) L 09/13/23 15:26 Acetaminophen < 5.0 ug/mL (10-30) L 09/13/23 15:26 Ethyl Alcohol < 10 mg/dL (0-10) 09/13/23 15:26 No radiology studies performed this visit Discharge Plan Discharge Patient Disposition: Home Clinical Impression: Depression, Autistic spectrum disorder Condition: Stable Prescriptions: No Action atorvastatin 40 mg tablet 40 mg PO QPM clonidine HCl 0.1 mg tablet 0.1 mg PO BEDTIME atenolol 25 mg tablet 25 mg PO BID famotidine 20 mg tablet 20 mg PO BID PRN (Reason: Heartburn) lorazepam 0.5 mg tablet 0.5 mg PO TID PRN (Reason: Anxiety) lisinopril 10 mg tablet 10 mg PO DAILY Rx Instructions: TAKE WITH ONE 5MG TAB TO EQUAL 15MG buspirone 7.5 mg tablet 7.5 mg PO BID montelukast 10 mg tablet 10 mg PO DAILY levothyroxine 200 mcg tablet 200 mcg PO DAILY lisinopril 5 mg tablet 5 mg PO DAILY Rx Instructions: TAKE WITH ONE 10MG TAB TO EQUAL 15MG hydrochlorothiazide 25 mg tablet 25 mg PO DAILY ergocalciferol (vitamin D2) 1,250 mcg (50,000 unit) capsule 1,250 mcg PO .ON MON & FRI pioglitazone 30 mg tablet 30 mg PO DAILY Premarin 0.3 mg tablet 0.3 mg PO DAILY fenofibrate 160 mg tablet 160 mg PO DAILY Farxiga 5 mg tablet 5 mg PO DAILY Vitamin C 100 mg Tablet 100 mg PO .MON & FRI elderberry fruit and flower 460-115 mg Capsule 1 cap PO DAILY venlafaxine 150 mg Capsule,Extended Release 24hr 300 mg PO BEDTIME 30 Days Qty: 60 1RF risperidone 1 mg Tablet 1 mg PO BID 30 Days Qty: 60 1RF Discharge Orders: Discharge ED (Routine); Ordered 09/13/23 Ordered By: Thalia Simpson Discharge Diet: Advance as tolerated Discharge Activity: Resume usual activity Patient Instructions: Depression (ED) Coding Level of Care Code ED Nurse Researcher for Coty Gudino
== END 2023-09-13 16:17 | disposition home or self-care (01) ==
PROVIDERS: Emergency Provider Emergency Medicine
DX: F32.A Depression, unspecified (principal); F84.0 Autistic disorder; Q96.9 Turner's syndrome, unspecified
CPT/HCPCS: 36415; 80053; 80307; 85025; 99283